=== PATIENT | female | born 1955 | race Caucasian/White ===

== ENCOUNTER 2017-11-08 11:06 | Day surgery (SDC) | payer BC ==
[~2017-11-08 11:06] MED LIST: Lactated Ringers 1,000 ML IV ONE; Lactated Ringers 1,000 ML IV SCH
[2017-11-08] MEDS ORDERED: DEMEROL 50 MG SDV IV ONE (11:07)
[2017-11-08] MEDS ORDERED: VERSED 5 MG/5 ML IV ONE (11:07)
[2017-11-08 14:32] VITALS: O2SAT 97
--- NOTE | 2017-11-08 14:43 | OP ---
SURGERY DATE/TIME: 11/08/2017 1326 PREOPERATIVE DIAGNOSIS: Previous history of polyps. Scope several years ago by Dr. Deny Scanlon. POSTOPERATIVE DIAGNOSIS: No polyps today. PROCEDURE: Colonoscopy complete to cecum. SURGEON: Heri Byrne M.D. ANESTHESIA: Monitored IV sedation. COMPLICATIONS: None. CONDITION: Stable. INDICATION: A patient requiring evaluation. DESCRIPTION OF PROCEDURE: Taken to endoscopy. IV sedation titrated. Oximeter kept over 90%. Comfort level satisfactory. Anal digital examination normal. Colon normal. Scope advanced. The colon was redundant. There were several areas of tortuosity. Did not distend readily but subsequent distend. Advance made over to the right colon and into the cecum. Base of the cecum, ileocecal valve, appendiceal orifice normal. Ascending, hepatic, transverse, splenic, descending, sigmoid, rectum, anus was normal. IMPRESSION: Other than slightly older, slightly lazy colon there was no diverticulosis. There were no mucosal lesions. Normal examination today. She has had polyps in the past. We will send her a reminder. She certainly needs endoscopic examination within three to five years.
[2017-11-08 14:59] VITALS: BP 113/57; PULSE 58
== END 2017-11-08 15:00 | disposition home or self-care (01) ==
LOC: SDC 11:06
PROVIDERS: ATTEND Surgery
DX: Z86.010 Personal history of colon polyps (principal)
CPT/HCPCS: J2175; J2250

== ENCOUNTER 2023-09-27 07:26 | Day surgery (SDC) | payer BC, MEDICARE ==
--- NOTE | 2023-09-26 10:34 | HP ---
DATE OF SURGERY: 09/27/2023 HISTORY OF PRESENT ILLNESS: The patient is a 68-year-old female presents for colonoscopy. Last colonoscopy was ten years ago and she had polyps. She has no symptoms. She has no family history of colon cancer. PAST MEDICAL HISTORY: Anxiety, depression. PAST SURGICAL HISTORY: D&C. Lipoma. ALLERGIES: PENICILLIN. SULFA. MEDICATIONS: Celebrex, Centrum, venlafaxine. FAMILY HISTORY: Nasal cancer. Breast cancer. SOCIAL HISTORY: Negative. REVIEW OF SYSTEMS: CONSTITUTIONAL: Denies fever or chills. CHEST: Denies shortness of breath. CVS: Denies chest pain. ABDOMEN: Denies abdominal pain. PHYSICAL EXAMINATION: GENERAL: No acute distress. CHEST: Nonlabored. No shortness of breath. CVS: Regular rate and rhythm. ABDOMEN: Soft. IMPRESSION: History of polyps. PLAN: Colonoscopy with Dr. Heri Byrne. As dictated by Ashley Reyna NP.
[2023-09-27 07:43] VITALS: TEMP 97.1
[2023-09-27] MEDS: Lactated Ringers 1,000 ML IV SCH (07:52)
[2023-09-27] MEDS ORDERED: Versed 2 MG/2 ML Injection ONE (11:36)
[2023-09-27] MEDS ORDERED: DIPRIVAN 200 MG/20 ML IV ONE (11:36)
[2023-09-27] MEDS ORDERED: GlucaGen 1 MG ONE (11:45)
[2023-09-27 12:18] VITALS: BP 119/47; PULSE 62; RESP 16; O2SAT 98
--- NOTE | 2023-09-27 13:58 | OP ---
SURGERY DATE/TIME: 09/27/2023 1136 PREOPERATIVE DIAGNOSIS: Ten year follow up of polyps and screening. POSTOPERATIVE DIAGNOSIS: Normal. PROCEDURE: Colonoscopic examination to cecum. SURGEON: Heri Byrne M.D. ANESTHESIA: MAC. COMPLICATIONS: None. CONDITION: Stable. DESCRIPTION OF PROCEDURE: The patient taken to endoscopy. Left lateral decubitus position. MAC sedation provided. Anal digital examination satisfactory. Tone was good. Scope advanced to the cecum. Base of the cecum, ileocecal valve, appendiceal orifice was good. It was photographed. The ascending, hepatic, transverse, splenic, descending, sigmoid, rectum, anus was normal. Normal exam. Follow up in ten years.
== END 2023-09-27 12:33 | disposition home or self-care (01) ==
LOC: SDC 07:26
PROVIDERS: ATTEND Surgery
DX: Z12.11 Encounter for screening for malignant neoplasm of colon (principal); Z09 Encounter for follow-up examination after completed treatment for conditions other than malignant neoplasm; Z86.010 Personal history of colon polyps; Z80.3 Family history of malignant neoplasm of breast
CPT/HCPCS: J1610; J2250; J2704

== ENCOUNTER 2024-04-24 07:34 | Day surgery (SDC) | payer BC ==
--- NOTE | 2024-04-18 08:54 | HP ---
HISTORY OF PRESENT ILLNESS: Patient is a 69-year-old female, presents with complaint of a lot of diarrhea after she eats. There is no blood in the stool. She has no abdominal pain. She has had this daily since January. She tried to change her diet, did not make a difference. She does say that she did have some stool studies at some point that were fine. She denies any fever or rectal bleeding. She also reports heartburn. She is taking some Prilosec. She is wondering if she has a celiac disorder. PAST MEDICAL HISTORY: GERD, skin cancer. MEDICATIONS: Prilosec, Celebrex. PAST SURGICAL HISTORY: Skin cancer removal, D and C. FAMILY HISTORY: None. SOCIAL HISTORY: Occasional alcohol. ALLERGIES: Penicillin and sulfa. REVIEW OF SYSTEMS: CONSTITUTIONAL: Denies fever or chills. CHEST: Denies shortness of breath. CARDIOVASCULAR: Denies chest pain. ABDOMEN: Reports epigastric pain. PHYSICAL EXAMINATION: GENERAL: No acute distress. CARDIOVASCULAR: Regular rate and rhythm. RESPIRATORY: Nonlabored. No shortness of breath. ABDOMEN: Soft. ASSESSMENT: Epigastric pain, chronic diarrhea. PLAN: Esophagogastroduodenoscopy. She would like to have a celiac biopsy and colonoscopy with some stool studies with Dr. Heri Byrne. This report was dictated for Dr. Byrne by Ashley Reyna NP.
[2024-04-24 07:46] VITALS: RESP 18
[2024-04-24] MEDS ORDERED: propofoL IV ONE ×2 (09:55→10:23)
[2024-04-24 11:03] VITALS: TEMP 98; O2SAT 98
[2024-04-24 11:09] VITALS: BP 128/68; PULSE 72
[2024-04-24 13:08] LABS: 027 TOX PROD PRESUMPTIVE NEGATIVE (NEGATIVE); TOXIGENIC C. DIFF ORG NEGATIVE (NEGATIVE)
--- NOTE | 2024-04-25 13:09 | OP ---
SURGERY DATE/TIME: 04/24/2024 1004 1028 PREOPERATIVE DIAGNOSIS: Epigastric pain and diarrhea. POSTOPERATIVE DIAGNOSIS: Grade 3/4 gastroesophageal reflux disease, gastritis. Normal colonoscopic examination. Stool was sent for clostridium difficile, ova and parasite and stool pathogens. PROCEDURES: 1. Esophagogastroduodenoscopy. 2. Colonoscopy with stool studies. SURGEON: Heri Byrne MD DESCRIPTION OF PROCEDURE AND FINDINGS: Patient was taken to endoscopy. Left lateral decubitus position. Scope introduced. Pharyngoesophageal junction normal. Esophagus normal down to EG junction. There was grade 3/4 GERD. There was some gastritis. A registered representative cold biopsy of the antrum was taken. Pylorus was normal. Duodenal bulb normal. Second portion normal. Scope looped upon itself satisfactory. Scope withdrawn. Anal digital examination satisfactory. Scope advanced to the cecum. Appendiceal orifice was identified and a photograph taken. Base of cecum, ascending, hepatic, transverse, splenic, descending, sigmoid, rectum, anus. There was moderate sigmoid diverticulosis with just really moderate almost mild. The mucosa was excellent throughout the exam. On further discussion with the , she was having just almost immediate dumping. She did have an acid problem. We did write a prescription for Protonix, and I think it is worth trying at least a course of Flagyl with this individual which was also written. We will see her back in the office in 3 or 4 weeks and see if there is any improvement in her diarrhea. Clinically, she had a very normal colon without signs of mucosal swelling, edema, redness, irregularity or anything. Matter of fact, the prep was good and the lining was good.
== END 2024-04-24 11:14 | disposition home or self-care (01) ==
LOC: SDC 07:34
PROVIDERS: ATTEND Surgery
DX: K21.9 Gastro-esophageal reflux disease without esophagitis (principal); K29.70 Gastritis, unspecified, without bleeding; R10.13 Epigastric pain; R19.7 Diarrhea, unspecified
CPT/HCPCS: 87045; 87046; 87177; 87209; 87328; 87329; 87427; 87493; J2704